=== PATIENT | female | born 1970 | race Caucasian/White ===

== ENCOUNTER 2025-02-07 15:00 | Outpatient (RCR) | payer BC, SELFPAY | END 2025-02-07 23:59 | disposition home or self-care (01) | LOC: PT.CARL 15:00 | PROVIDERS: Visit Provider Orthopaedic Surgery | DX: Z47.89 Encounter for other orthopedic aftercare (principal); Z96.642 Presence of left artificial hip joint | CPT/HCPCS: 97110; 97116; 97161; 97530 ==

== ENCOUNTER 2025-03-10 15:30 | Outpatient (RCR) | payer BC, SELFPAY | END 2025-03-10 23:59 | disposition home or self-care (01) | LOC: PT.CARL 15:30 | PROVIDERS: Visit Provider Orthopaedic Surgery | DX: Z47.89 Encounter for other orthopedic aftercare (principal); Z96.642 Presence of left artificial hip joint | CPT/HCPCS: 97110; 97112; 97164; 97530 ==

== ENCOUNTER 2025-03-16 15:56 | Outpatient (RCR) | payer BC, SELFPAY | END 2025-03-30 09:29 | disposition home or self-care (01) | LOC: PT.CARL 15:56 | PROVIDERS: Visit Provider Orthopaedic Surgery | DX: Z47.89 Encounter for other orthopedic aftercare (principal); Z96.642 Presence of left artificial hip joint | CPT/HCPCS: 97110 ==